=== PATIENT | female | born 1960 | race Asian ===

== ENCOUNTER 2016-04-12 11:45 | Observation (INO) | payer MEDICAID, OTHER ==
[2016-04-12] VITALS (8 sets, daily range): BP systolic 94–108; BP diastolic 56–75; PULSE 87–105; RESP 16–20; O2SAT 92–100
[~2016-04-12] VITALS: Ht 162.6 cm; Wt 65.3 kg
[~2016-04-12 11:45] MED LIST: ADV100INH IH; ALPH200T PO; ANAS1TAB7 PO; ASPI-653 PO; CALC600T12 PO; FLE10 PO; FLUD0.1T PO; FLUT9.9S NS; GABA300C PO; GABA600T PO; HYDR2TAB28 PO; INSU100V5 SQ; INSU100V6 SQ; INSU100V7 SUBQ; LANS30CA8 PO; LOM PO; MIRT15TA6 PO; MONT10TA23 PO; OMEP40CA36 PO; ONDA8TAB7 PO; PRAM0.122 PO; PREG50CA PO; PROC-4 PO; PROZ20 PO; SENN25TA8 PO; SIMV10TA4 PO; TIOT18CA3 IH; TOPI-31 PO; TOPI-59 PO
--- NOTE | 2016-04-12 11:48 | ED.REPORT ---
HPI-Stroke / CVA Apr 12, 2016 ED Provider: Kassy Ruiz MD 56 year old female with a history of diabetes, depression, current smoker and a history of drug use (cocaine) who presents to the ED due to a sudden onset of R sided arm and leg weakness and numbness at 11:25 today. Pt reports a history of similar symptoms (R sided weakness) Mar 2011. Prior to 11:25 the patient was at baseline with very mild R sided weakness and numbness. This is now severe per patient. At onset the patient was cooking and suddenly fell due to the weakness. Her son witnessed the fall. Pt reports a slight headache and states that she hit her head during the fall. She also reports seconds of "going black " after the fall. Associated symptoms include slurred speech and blurred vision. Home BGL was "high". Note from Mar 2011 states "Patient admits to re-starting cocaine... Her brain MRI, angiogram, and neck MRI angiogram showed no evidence of significant vascular disease. I think her neuro deficit is probably more related to her substance abuse." Nursing Notes Stated Complaint: FACIAL DROOPING Chief Complaint: Neuro Symptoms/ Deficits Nursing Notes Reviewed: Yes Allergies: Coded Allergies: tetracycline (Verified Allergy, Severe, Altered LOC, 07/03/15) risperidone (Verified Allergy, Unknown, 07/03/15) trazodone (Verified Allergy, Unknown, 07/03/15) Scheduled Alpha Lipoic Acid (Alpha Lipoic Acid) 200 Mg Tablet 200 MG PO BID (Reported) Anastrozole (Anastrozole) 1 Mg Tablet 1 MG PO DAILY (Reported) Aspirin (Aspirin) 81 Mg Tablet 81 MG PO DAILY (Reported) Calcium Carbonate (Calcium) 600 Mg Tablet 600 MG PO DAILY (Reported) Diphenoxylate/Atropine (Diphenoxylate-Atrop 2.5-0.025) 2.5 Mg Tablet 2.5 MG PO Q6HRS PRN (Reported) Fludrocortisone Acetate (Fludrocortisone Acetate) 0.1 Mg Tablet 0.1 MG PO DAILY (Reported) Fluoxetine (Fluoxetine) 20 Mg Tablet 20 MG PO DAILY (Reported) Fluticasone/Salmeterol (Advair 100-50 Diskus) 60 Puffs/Inh Disk 1 PUFFS IH BID ( Reported) Gabapentin (Gabapentin) 300 Mg Capsule 900 MG PO BID (Reported) Gabapentin (Gabapentin) 600 Mg Tablet 600 MG PO DAILY (Reported) Insulin Glargine (Lantus U100 Insulin Vial) 100 Unit/Ml Vial 25 UNIT SUBQ AM ( Reported) Insulin Glargine (Lantus U100 Insulin Vial) 100 Unit/Ml Vial 50 UNIT SUBQ HS ( Reported) Insulin Human Lispro (HumaLOG U100 Insulin Vial) 100 Unit/Ml Unit 1 UNIT SUBQ ACHS (Reported) Check blood sugars before meals and at bedtime. Use correction factor only before meals. Blood Sugar Lispro Correction: <151, 0 units; 151-175, 1 unit; 176-200, 2 units; 201-225, 3 units; 226-250, 4 units; 251-275, 5 units; 276-300 , 6 units; 301-325, 7 units; 326-350, 8 units; 351-375, 9 units; 376-400, 10 units; >400, 12 units. Mirtazapine (Mirtazapine) 15 Mg Tablet 15 MG PO HS (Reported) Montelukast (Montelukast) 10 Mg Tablet 10 MG PO HS (Reported) Omeprazole (Omeprazole) 40 Mg Capsule.dr 40 MG PO HS (Reported) Pramipexole Dihydrochloride (Mirapex) 0.125 Mg Tablet 0.125 MG PO TID (Reported ) Prochlorperazine Maleate (Compazine) 10 Mg Tablet 10 MG PO PRN (Reported) Simvastatin (Simvastatin) 10 Mg Tablet 10 MG PO HS (Reported) Topiramate (Topiramate) 100 Mg Tablet 100 MG PO DAILY (Reported) Topiramate (Topiramate) 25 Mg Tablet 50 MG PO DAILY (Reported) Scheduled PRN Cyclobenzaprine (Cyclobenzaprine) 5 Mg Tablet 5 MG PO TID PRN PRN Spasm ( Reported) Hydromorphone (Hydromorphone) 2 Mg Tablet 2 MG PO Q4H PRN PRN Pain (Reported) Ondansetron ODT (Zofran ODT) 8 Mg Tablet 8 MG PO Q4H PRN PRN For Nausea ( Reported) Miscellaneous Medications Fluticasone Propionate (Flonase Allergy Relief) 50 Mcg/Actuation [place].susp 9.9 ML NS (Reported) Sennosides (Senna Laxative) 25 Mg Tablet 25 MG PO (Reported) Umeclidinium [place] (Incruse Ellipta) 62.5 Mcg/Actuation Blst.w.dev (Reported) General Time Seen by Provider: 11:43 Chief Complaint Weakness, Numbness, Slurred speech Right-sided Hx Obtained From: Patient Arrived By: Wheelchair Time last known well 1125 04/12/16 Sudden in Onset?: Yes Context of Onset: Other (At home) Symptom Duration: Since onset Progression Since Onset: Constant Severity: Current: No pain currently Pertinent Negative: Relieved by nothing Similar Sx Previous: Yes Risk Factors )( TPA Administration/Criteria Stroke Thrombolytic Therapy : TPA Considered: Yes TPA Administered Intravenously: No, exclusion criteria (Symptoms improving) NIH Stroke Scale Level of Consciousness: Alert and responsive (0) Ask Month & Age: Both questions right (0) Open/Close Eyes/Hand Hide Paster: Performs both tasks (0) Horizontal EO Movements: None (0) Visual [place]: No visual loss (0) Facial Palsy: Minor paralysis (1) (L side) Right Arm Motor Drift (10s): Drift, not touch bed (1) Left Arm Motor Drift (10s): No drift 10 sec (0) Right Leg Motor Drift (5s): Drift, not touch bed (1) Left Leg Motor Drift (5s): No drift 5 sec (0) Limb Ataxia FNF/Heel-Goodson: Ataxia in 1 limb (1) (RLE) Sensation (Arms/Legs/Face): Pinprick less sharp (1) (R side) Language Aphasia: Loss fluency ID matls (1) Dysarthria: Slurring intelligible (1) Extinction/Inattention: No exctinct/inattent (0) NIHSS Score: 7 Time NIHSS Performed: 11:44 Date NIHSS Performed: Apr 12, 2016 )( CVA Risk Stratification Risk factors reviewed Past Medical History Past Medical History 1. Depression, anxiety. 2. PTSD. 3. Substance abuse (cocaine). 4. History of peptic ulcer disease. 5. Suicide attempt by overdose 6. Type 2 diabetes 7. Becker's disease 8. Treated TIc N1 estrogen receptor positive, HER2 negative, well differentiated infiltrating ductal carcinoma of the right breast. Past Surgical History 1. Carpal tunnel syndrome. 2. Bilat rotator cuff. 3. . 4. Ovarian cystectomy 5. Appendectomy 6. Neck laminectomy 7. R lumpectomy Smoking History Current Every Day Smoker Social History Alcohol Use: Denies alcohol use Drug Use: Cocaine Ambulatory Status Independent Review of Systems Constitutional: Denies: Fever Respiratory: Denies: Non-productive cough, Shortness of breath Cardiovascular: Denies: Chest pain GI: Denies: Abdominal pain, Diarrhea, Vomiting Neurologic: Reports: Change LOC, Focal weakness, Headache, Numbness, Problem walking, Slurred speech, Vision change Complete sys rev & neg: except as marked. Physical Exam Initial Vital Signs Vital Signs (First) Date Time Temp Pulse Resp B/P Pulse Ox O2 Delivery O2 Flow Rate FiO2 04/12/16 11:46 37.2 105 18 103/62 100 Room Air Initial VS: Reviewed ENT: Conjunctiva normal, No scleral icterus Abdomen / GI: Soft, Non-tender Skin: Warm, Dry, No cyanosis General/Constitutional: Awake, Alert, Cooperative Head / Eyes: Atraumatic, Normocephalic, PERRL Neck: Atraumatic, Full range of motion Respiratory / Chest: Breath sounds NL, Breath sounds = bilat, No respiratory distress, No rales, No rhonchi, No wheezing Cardiovascular: Regular rhythm, Heart sounds NL, No murmurs, Peripheral circulation NL (Well perfused) Heart Rate / Rhythm: Positive: Tachycardia Neurologic: Oriented X3 Speech: Positive: Slurred (slightly) Sensory Deficit: Positive: Lower extremity R, Upper extremity R Cerebellar Dysfunction: Positive: Heel-goodson abnl (bilat) Mild L sided facial droop Interpretation & Diagnostics Lab Results Interpretation Result Diagram: 04/12/16 1225 04/12/16 1225 Test 04/12/16 12:25 White Blood Count 8.5th/mm3 (3.8-10.1) Red Blood Count 4.49mil/mm3 (3.90-5.20) Hemoglobin 13.8g/dL (12.0-15.6) Hematocrit 41.3% (35.0-46.0) Mean Corpuscular Volume 92.0fL (81-100) Mean Corpuscular Hemoglobin 30.7pg (27.0-35.0) Mean Corpuscular Hemoglobin Concent 33.4% (32.0-37.0) Red Cell Distribution Width 13.3% (12.3-15.4) Platelet Count 345bil/L (150-400) Neutrophils (%) (Auto) 73.4% (40-74) Lymphocytes (%) (Auto) 18.7% (14-46) Monocytes (%) (Auto) 6.1% (4-12) Eosinophils (%) (Auto) 1.1% (0-5) Basophils (%) (Auto) 0.5% (0-3) Prothrombin Time 10.4sec (8.1-12.5) Prothromb Time International Ratio 0.97ratio Activated Partial Thromboplast Time 19.8sec (22.8-33.0) Sodium Level 141mEq/L (134-144) Potassium Level 3.8mEq/L (3.5-5.2) Chloride Level 100mEq/L (97-108) Carbon Dioxide Level 25mmol/L (18-29) Blood Urea Nitrogen 8mg/dL (6-24) Creatinine 0.87mg/dL (0.57-1.00) Estimat Glomerular Filtration Rate 96mL/min (>59) Glucose Level 157mg/dL (60-99) Calcium Level 9.9mg/dL (8.5-10.1) Total Bilirubin 0.3mg/dL (0.0-1.2) Aspartate Amino Transf (AST/SGOT) 60U/L (0-50) Alanine Aminotransferase (ALT/SGPT) 43U/L (0-32) Alkaline Phosphatase 161U/L (25-150) Troponin T 0.010ug/L (0.0-0.011) Total Protein 8.5g/dL (6.4-8.4) Albumin 4.2g/dL (3.4-5.0) Hold [place] Top Tube Received (Received) General Lab Results Interp 1: Labs reviewed ECG Interpretation ECG Interpretation: NSR with rate 95. No chest pain. Pt with R sided weakness/numbness. Similar ST changes to 11/2011. Time: 12:11 Interpreted by: ED physician CT Head Interpretation IMPRESSION: No acute intracranial findings. These findings were discussed with Dr. Ruiz at 12:01 PM on 04/12/16. This study fulfills neurological imaging criteria for inclusion or exclusion of acute stroke therapies based on available published neurological imaging guidelines. Dictated by: Fartun Marin M.D. on 04/12/2016 at 12:00 Study: Head CT no contrast Interpretation / Wet Read by: Interpret - Radiologist, Discussed w radiologist (No bleed 12:02) Re-Eval/Medical Decision Re-Evaluation/Progress : Time of Eval: 12:41 Re-Evaluation/Progress Note: Pt resting comfortably in bed. Slightly hypertensive and tacycardic. Updated pt of labs, ECG and imaging results. Pt's son is now in the room. He states she was having difficulty with speech, but that this is much better now. Her other symptoms are also improving. Recommended admission. Pt understands and agrees with plan. All questions addressed. Consultation : Referral / Consult Name: Ha Garcia DO Consulted With: Hospitalist Call Returned at: 15:02 Information Systems Audit Manager: Will see patient, Agrees with eval, Agrees with plan, Accepts admit Counseled Regarding: Diagnosis, Lab results, Need for admission Patient Discharge & Departure Impression: Primary Impression: TIA (transient ischemic attack) Transient cerebral ischemia type: unspecified Qualified Code: G45.9 - Transient cerebral ischemic attack, unspecified Additional Impression: Numbness on right side Disposition: ADMITTED TO HOSPITAL Discharge Condition All VS Reviewed: Yes Condition: Improved Referrals: NOPCP (PCP) Scribe Attestation Portions of this note were transcribed by Marian Burgess. I, (Dr. Ruiz) personally performed the history, physical exam and medical decision-making; I reviewed and confirmed the accuracy of the information in the transcribed note. Signed by: Marian Burgess. [place], 04/12/2016, 1209 Kassy Ruiz MD Apr 12, 2016 11:48 Marian Burgess Apr 12, 2016 12:10
--- NOTE | 2016-04-12 12:05 | DRSVH ---
PROCEDURE: CT BRAIN (TPA) ([id number]) INDICATIONS: Stroke TECHNIQUE: Noncontrast 4.5 mm thick angled axial sections acquired from the foramen magnum to the vertex, with c oronal reformats. COMPARISON: None. FINDINGS: Image quality: Excellent. CSF spaces: Basal cisterns are patent. No extra-axial fluid collections. Ventricles are normal in size and shape. Brain: No midline shift. No intracranial masses or hemorrhage. Choudhary-white matter interface is norm al. Skull and face: Calvarium and visualized facial bones are intact, without suspicious lesions. Sinuses: Visualized sinuses and mastoids are clear. IMPRESSION: No acute intracranial findings. These findings were discussed with Dr. Ruiz at 12:01 PM on 04/12/16. This study fulfills neurological imaging criteria for inclusion or exclusion of acute stroke therapie s based on available published neurological imaging guidelines. Dictated by: Fartun Marin M.D. on 04/12/2016 at 12:00 Approved by: Fartun Marin M.D. on 04/12/2016 at 12:03
[2016-04-12 12:36] LABS: BASOPHILS % (AUTO) 0.5 % (0-3); EOSINOPHILS % (AUTO) 1.1 % (0-5); MONOCYTES % (AUTO) 6.1 % (4-12); Mean Corpuscular Hemoglobin 30.7 pg (27.0-35.0); NEUTROPHILS % (AUTO) 73.4 % (40-74); Platelet Count 345 bil/L (150-400)
[2016-04-12 12:45] LABS: INR 0.97 ratio
[2016-04-12 12:50] LABS: TROPONIN T 0.01 ug/L (0.0-0.011)
[2016-04-12] MEDS ORDERED: UMEC62.5 (12:59)
[2016-04-12] MEDS ORDERED: GABA600T2 PO (13:05)
[2016-04-12] MEDS ORDERED: CYCL5TAB PO (13:05)
[2016-04-12] MEDS ORDERED: INSU100V7 SUBQ (13:05)
[2016-04-12] MEDS ORDERED: FLUO20TA28 PO (13:05)
[2016-04-12] MEDS ORDERED: GABA-502 PO (13:05)
[2016-04-12] MEDS ORDERED: ASPI-973 PO (13:05)
[2016-04-12] MEDS ORDERED: INSLIS SUBQ (13:08)
[2016-04-12] MEDS ORDERED: Alum-Mag Hydrox-Simeth 30 mL Suspension PO PRN (15:40)
[2016-04-12] MEDS ORDERED: Ondansetron 2 mg/mL 2 mL Inj IVPUSH PRN (15:40)
[2016-04-12] MEDS ORDERED: Polyethylene Glycol (PEG) 17 Gm Powder PO PRN (15:40)
--- NOTE | 2016-04-12 16:00 | NUR ---
Admission Patient arrived on unit via gurney accompanied by son. Patient alert and oriented x3. Patient displayed unsteady gait with 1 person assist to stand/pivot to sit on bed. Patient reporting she was cooking and had a sudden onset of Rt sided weakness and fell to the floor. Followed by blurred vision, facial droop and slurred speech. Patient reporting a continuous "migraine" for the last several days. Patient reports she used cocaine 2 days ago, is a current every day smoker and a diabetic. Son manages her medications and helps her with her care. Patient reporting she still has some slurred speech (which is difficult to assess as she has no teeth) patient also reporting that her speech has improved greatly and her blurred vision is nearly resolved. Patient has no tongue deviation or facial droop. Swallow screen preformed per speech therapy. MRI/CT complete. Addendum: 04/12/16 at 1922 by LOUIS BURNS RN Patient does not have an Advance Directive.
--- NOTE | 2016-04-12 16:23 | PCM.HPMED ---
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 Per patient, last memory was of cooking lunch around 11oclock this AM. Then, blacked out, woke up on the ground. Her son witness the event, said she woke up in seconds. States of palpitation with associated lightheaded, dizziness moments before the fall. She reports Right sided weakness and ataxia after the fall. Denies any bowel/bladder incontinence. No nausea, vomiting. They arrived at ED 11:44 am with NIHSS 7. Prior to syncope, she reports morning BG >350. She gave herself 36u short acting insulin. She normally takes 34u in the AM. Blood sugar consistently in the 300's, admits to poorly managing Lantus. She has increasing stressors. She has been using cocaine, last use 3 days ago. She denies any heart history. Per patient, cardiac stress testing unremarkable 2yrs ago. Review of Systems: A comprehensive review of systems was conducted with the patient and found to be negative except as above in the History of Present Illness. Allergies Coded Allergies: tetracycline (Verified Allergy, Severe, Altered LOC, 07/03/15) risperidone (Verified Allergy, Unknown, 07/03/15) trazodone (Verified Allergy, Unknown, 07/03/15) Home Medications Medication list verified by Linda Garcia RN Alpha lipoic acid 200 mg by mouth twice a day Anastrozole 1 mg by mouth daily aspirin 81 mg daily Calcium carbonate 600 mg daily Cyclobenzaprine 5 mg 3 times a day when necessary Diphenoxylate/atropine 2.5 mg tablet every 6 hours when necessary Fludrocortisone acetate 0.1 mg daily Fluoxetine 20 mg daily Fluticasone appropriately. 50 MCG when necessary Advair 100-50 discussed one puff twice a day Gabapentin 100 mg twice a day Gabapentin 600 mg daily Hydromorphone 2 mg every 4 hours when necessary Lantus 25 mg every morning and 50 mg daily at bedtime Lispro per sliding scale There are PACs 0.125 mg by mouth 3 times a day Conversely, milligram by mouth when necessary Senokot 25 mg by mouth daily As needed Simvastatin 10 mg by mouth at bedtime Topiramate 100 mg by mouth daily Umeclidiunium 62.5 MCG daily PMH Depression/anxiety PTSD. Substance abuse (cocaine). History of peptic ulcer disease. Suicide attempt by overdose Type 2 diabetes Garland's disease Differentiated Ductal carcinoma of Right breast Surgical History Cervical spinal fusion x2 2001 and 2011 Rotator cuff repair Appendectomy right breast lumpectomy Family History Mother - blood clot disorder Social History Occupation: high lift driver, currently [employer] Hx Alcohol Use: No Hx Substance Use: Yes (cocaine, used yesterday for first time in 7 years) Hx Tobacco Use: Yes (1/2 ppd) Smoking Status: Current Every Day Smoker Living Arrangement: with Family Exam Vital Signs Vital Sign - Last Date Time Temp Pulse Resp B/P Pulse Ox O2 Delivery O2 Flow Rate FiO2 04/12/16 15:03 37.2 93 19 94/59 92 Room Air Exam Gen: Lying comfortably at 30degree head tilt HEENT: PERRLA, Anicteric sclerae, moist conjunctivae, and no lid lag. Neck: supple, no JVD Cardio: Regular rate and rhythm with no murmurs, rubs, or gallops appreciated Pulm: b/l air sound, no crackles, wheezes, or rhonchi. Normal respiratory effort with no use of accessory muscles. Abd: positive bowel tone. Soft, nontender, nondistended. Extremities: No clubbing, cyanosis, edema, or lymphadenopathy appreciated. Skin: Normal temperature, turgor, and texture; no rash, ulcers, or subcutaneous nodules appreciated. Neuro: Cranial nerves grossly intact. moving equally on all four limbs, + Romberg test. Negative [id number] Psyc: Normal mood and affect. 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 Syncope, present on admission, ongoing -- Possible orthostatic hypotension due to Garland's disease, vasovagal, or even hypoglycemia. Though BG 157 in ED. -- Patient non-compliance with medications. -- Echocardiogram and orthostatic in the AM -- Telemetry on TIA, present on admission, active -- NIH score 7, CT-head unremarkable -- High stroke risk DM II, chronic smoker, recent cocaine use, positive Romberg test -- Past hx of TIA/stroke 4 yrs ago, possible recrudescence 2nd to hypoperfusion , Concerns for new embolic stroke -- MRI-stroke protocol, echocardiogram, and lipid profile ordered -- cont home Aspirin 81mg daily and atorvastatin -- PT/swallowing eval pending Diabetes Type II, insulin using, present on admission, ongoing -- with peripheral neuropathy -- noncompliance to insulin use -- A1C pending -- Lantus 25mg BID, Insulin per sliding scale -- Gabapentin for neuropathy -- Diabetes education. Low/no carb diet. Garland's disease -- Cont home Fludrocortisone Polydrug abuse, present on admission, active -- cocaine and marihuana -- Social work referral. Asthma, present on admission, ongoing -- She actively smokes -- cont Advair -- Duoneb as needed Tobacco use disorder -- Discuss risk/benefits of smoking secession -- Provide education to stop Anxiety/Depression -- Restart pramipexole and fluoxetine Depression/anxiety/PTSD -- Mirapex and fluoxetine -- Psychiatrist Dr. 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 Seizure disorder- Topiramate Chronic pain - hydrocodone DVT prophylaxis: Lovenox subQ Antipyretic: Acetaminophen PRN Antinausea: Ondansetron PRN Bowel regiment PRN Patient is admitted under observation status with expected length of stay LESS than 2 midnights due to severity of presenting symptoms, risk of adverse event, and complexity of treatment plan. Time spent 50 minutes Attending Statement I have seen and evaluated patient at bedside in addition to directly supervised care provided by resident physician. I agree with above documentation. Riaz Enrique DO Apr 12, 2016 15:48 Ha Garcia DO Apr 13, 2016 08:23
[2016-04-12] MEDS ORDERED: Insulin GLARgine 100 Unit/mL Syringe SUBQ SCH ×3 (16:35→21:00)
[2016-04-12] MEDS ORDERED: Glucose 40% Oral Gel 15 Gm Tube PO PRN (16:35)
[2016-04-12] MEDS: 0.9% Sodium Chloride 1,000 ML IV SCH (16:37)
[2016-04-12] MEDS: Insulin LISPRO 300 Unit/3 mL Inj SUBQ SCH ×2 (17:49→21:32)
[2016-04-12] MEDS ORDERED: Albuterol-Ipratropium 3 mL Inhalation Solution NEB PRN (18:20)
--- NOTE | 2016-04-12 19:14 | DRSVH ---
PROCEDURE: MRI STROKE PROTOCOL ([id number]) Pre- and post-contrast brain MRI, non-contrast brain MR angiogram, pre- and postcontrast neck MR katiana ogram INDICATIONS: Right side weakness,TIA TECHNIQUE: Brain: Noncontrast axial T1 spin echo, axial T2 fast spin echo, sagittal and axial FLAIR, coronal T2 fast spin echo, axial gradient echo, axial diffusion and ADC through the brain. After the administr ation of contrast, axial 3D VIBE of the cranial vasculature and brain. Brain MRA: Non-contrast 3-D time of flight MR angiogram, with multiple otsgpqf-wgvijzjom-dldaqtmnkw (MIP) reformats performed. Neck MRA: Axial and sagittal TruFISP through the neck. Coronal dynamic MR angiogram during administ ration of contrast in the arterial and venous phases, with 3-dimenstional jiymsrj-bmoohhdhb-fdiaascgc n (MIP) reformats constructed from subtraction images. COMPARISON: [facility], MR, STROKE PROTOCOL ([facility]), 04/02/2011, 8:00. FINDINGS: Image quality: Excellent. BRAIN: CSF spaces: Ventricles are normal in size and shape. Basal cisterns are patent. No extra-axial flu id collections. Brain: No intracranial bleeds or mass effects. Choudhary-white matter interface is normal. Diffusion we ighted images show no acute ischemic insults. There are a few indeterminate foci of T2/FLAIR hyperin tensity, unchanged, most likely secondary to chronic small vessel ischemia. Brainstem appears normal. Normal intravascular flow voids are present. No abnormal intracranial enhancement. Skull and face: Calvarial marrow signal is normal. Orbits appear normal. Sinuses: Sinuses and mastoids are clear. BRAIN MR ANGIOGRAM: Anterior circulation: Intracranial internal carotid arteries are normal in size and enhancement. Th e flow within the paired anterior cerebral arteries is normal and symmetric. The flow within the mid dle cerebral arteries is normal and symmetric. The anterior communicating artery is seen. No stenos es, occlusions, or aneurysms. Posterior circulation: The visualized portions of the vertebral arteries demonstrate normal caliber, and join to form a normal appearing basilar artery. The flow within the posterior cerebral arteries is normal and symmetric. No stenoses, occlusions, or aneurysms. NECK MR ANGIOGRAM: Carotids: There is a common trunk for the left common carotid artery and innominate artery. The alfred gins of the common carotid arteries appear patent. The calibers and courses of both common carotid a rteries are normal. The bifurcation regions appear normal bilaterally. The internal carotid arterie s demonstrate normal course and caliber. Posterior circulation: The origins of the vertebral arteries appear patent. More superior portions of both vertebral arteries demonstrate normal course and caliber, and join to form a normal appearing basilar artery. Miscellaneous: Subclavian arteries appear patent. Pre-contrast images through the neck show no soft tissue abnormalities. IMPRESSION: BRAIN MRI: No acute intracranial abnormalities. BRAIN MR ANGIOGRAM: Normal brain angiogram. NECK MR ANGIOGRAM: Normal neck angiogram compared The estimate of stenosis included in the report of the imaging study was calculated using the NASCET method Dictated by: Chiara Love M.D. on 04/12/2016 at 19:07 Approved by: Chiara Love M.D. on 04/12/2016 at 19:13
[2016-04-12] MEDS ORDERED: Pantoprazole 40 mg ER24 Tablet PO SCH (21:00)
[2016-04-12] MEDS: Fluticasone-Salmeterol 100-50 Inhaler INHALATION SCH (21:26)
[2016-04-12 23:44] LABS: APPEARANCE,URINE CLOUDY (CLEAR,HAZY); COLOR,URINE YELLOW (YELLOW); OCCULT BLOOD,URINE SMALL (NEGATIVE); PH,URINE 5.5 (5.0-8.0); UROBILINOGEN,URINE NORMAL (NORMAL)
[2016-04-13 01:59] VITALS: BP 118/71; PULSE 78; RESP 20; O2SAT 95
[2016-04-13] MEDS: 0.9% Sodium Chloride 1,000 ML IV SCH (03:12)
--- NOTE | 2016-04-13 04:53 | NUR ---
sats/neuro/pain Placed on continuous pulse oximetry while asleep due to history of sleep apnea, and room air sats have remained in mid-90's throughout the night. Pt has been alert and oriented. Up to bathroom with standby assist. Noted some weakness when up, and bed alarm is on for safety, although she has been using the call light appropriately to request assistance. Continues with some numbness to right leg and arm, which she states is new this hospitalization, but improving. C/o chronic back pain and given home dose of PO Dilaudid. States this was effective and has slept much of the night.
[2016-04-13 05:58] VITALS: BP 143/73; PULSE 71; RESP 18; O2SAT 95
--- NOTE | 2016-04-13 06:49 | NUR ---
Lab Labs note yet drawn this AM. Contacted lab to come and draw.
[2016-04-13] MEDS: Fluticasone-Salmeterol 100-50 Inhaler INHALATION SCH (08:04)
[2016-04-13] MEDS: Insulin LISPRO 300 Unit/3 mL Inj SUBQ SCH ×2 (08:04→12:05)
[2016-04-13] MEDS ORDERED: Insulin GLARgine 100 Unit/mL Syringe SUBQ SCH (08:30)
[2016-04-13 09:00] VITALS: PULSE 82; RESP 18; O2SAT 97
[2016-04-13 10:49] VITALS: BP 127/77; PULSE 79; RESP 18; O2SAT 93
[2016-04-13 10:50] VITALS: BP_SYST 132; BP_SYST 138; BP_DIAS 48; BP_DIAS 76
--- NOTE | 2016-04-13 11:35 | DRSVH ---
[facility] [address] [place] [address] Echocardiogram Report Name: REHANA MCNEIL FStudy Date: 04/13/2016 Height: 64 in Hospital Exam Location: [facility] Weight: 144 lb Gender: Female BSA: 1.7 m2 : 1960 Age: 56 yrs BP: 143/73 mmHg Reason For Study: TIA, STROKE History: CVA,CANCER Ordering Physician: HOSPITALIST [facility] Performed By: Ni Rojas Referring Physician: DR. BRENDA MARTÍNEZ, [place] Interpretation Summary The left ventricle is normal in size, wall thickness, and systolic function without any focal wall motion abnormalities. The ejection fraction is estimated to be 60-65%. Injection of contrast documented no interatrial shunt. There is no significant valvular heart disease. Procedure: A two-dimensional transthoracic echocardiogram with color flow and Doppler was performed. The study quality was technically adequate. Comparison is made with the echocardiogram of 04-02-2011. A saline contrast injection was performed to assess for cardiac shunting. The injection was performed through an intravenous line in the left arm. The patient was in normal sinus rhythm during the exam. Left Ventricle: The left ventricle is normal in size, wall thickness, and systolic function without any focal wall motion abnormalities. The ejection fraction is estimated to be 60-65%. Spectral Doppler of the mitral valve shows a normal E/A wave ratio. Right Ventricle: The right ventricle is normal in size and function. A moderator band is seen in the right ventricle. Atria: Both atria are normal in size. There is no Doppler evidence for an atrial septal defect. Injection of contrast documented no interatrial shunt. Mitral Valve: The mitral valve leaflets appear normal. There is no evidence of stenosis, fluttering, or prolapse. There is trace mitral regurgitation. Aortic Valve: The aortic valve is trileaflet. The aortic valve opens well. No aortic regurgitation is present. Tricuspid Valve: The tricuspid valve leaflets are thin and pliable. There is a trace or physiologic amount of tricuspid regurgitation. Pulmonary artery pressures cannot be estimated because of the lack of a measurable TR jet velocity. Pulmonic Valve: The pulmonic valve is normal in structure and function. There is no pulmonic valvular regurgitation. Great Vessels: The aortic root is normal size. The dimensions of the ascending aorta are normal. The pulmonary artery is normal size. The IVC is dilated (diameter is greater than 2.1 cm) and it collapses less than 50% with a sniff. This suggests a high right atrial pressure of 15 mm Hg. Pericardium/ Pleura There is no pericardial effusion. There is no pleural effusion. MMode/2D Measurements & Calculations LVIDd: 3.9 cm LA dimension: 4.1 cm RA long axis LVOT diam: 2.1 cm LVIDs: 2.6 cm AoV Opening FS: 33.4 % LA A2 area: 16.5 cm RA area EPSS: 0.20 cm LA A4 area: 22.5 cm Ao root diam IVSd: 1.1 cm LA length (vol) : 16.4 cm LVPWd: 1.1 cm RA vol asc Aorta Diam LA vol: 58.6 ml : 47.3 ml LA vol index RA Ao Arch Diam (Prox : 27.8 mm2 Trans): 3.1 cm IVC diam: 2.5 cm LV camara. diameter/BSA LV sys. diameter/BSA (cm/m^2): 2.3 (cm/m^2): 1.5 Doppler Measurements & Calculations Ao V2 max MV E max rangel MV E/A: 1.1 PA V2 max : 156.2 cm/sec : 104.3 cm/sec Med Peak E' Rangel : 88.4 cm/sec Ao max P.8 mmHg MV A max rangel PA mean PG Ao mean P.7 mmHg : 95.8 cm/sec E/E' med: 13.5 LVOT Max Rangel MV P1/2t: 63.7 msec Lat Peak E' Rangel PA Accel Time : 102.5 cm/sec : 0.11 sec E/E' lat: 9.7 LORENE(I,D): 2.4 cm E/e' average sev ratio: 0.70 Pulm A Revs Dur MV A dur : 0.13 sec MV P1/2t max rangel Ao V2 mean LV V1 max PG PA V2 mean : 104.3 cm/sec : 70.0 cm/sec Ao V2 VTI: 32.4 cm LV V1 VTI MVA(P1/2t): 3.5 cm2 : 22.8 cm LORENE(V,D): 2.2 cm2 LORENE indexed to BSA Pulm A Revs Dur - MV A (cm^2/m^2): 1.4 Dur: -0.02 msec Electronically signed by: Nii Hodges on Reading Physician:04/13/2016 11:34 AM
[2016-04-13 13:33] VITALS: BP 134/73; PULSE 87; RESP 19; O2SAT 95
--- NOTE | 2016-04-13 14:20 | PCM.DIMED ---
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 We found no evidence of a stroke in you. Nor did we find any evidence for the transient ischemic attack based on MRI, echocardiogram, and heart monitoring. Likely, you did not take your medication, especially your fludrocortisone. This caused hypotension and was the reason for the "fainting" You will also need to control your blood sugar. Please take your lantus at the prescribed amount. Lantus 25mg in the morning Lantus 50mg at night Short acting insulin. Limit your carbohydrates. Follow-up Provider: OTHER,PHYSICIAN Follow-up with PCP in: 1 week (CAMILA Syed ) Ha Garcia DO 04/13/16 1453: Discharge Instructions Attending's Statement Read and agree Riaz Enrique DO Apr 13, 2016 14:20 Ha Garcia DO Apr 13, 2016 14:53
--- NOTE | 2016-04-13 15:35 | NUR ---
DISCHARGE Patient discharged at 1530, off floor in wheelchair accompanied by HOUSE PRINCIPAL. Vitals stable, denies pain and in no apparent distress. IV discontinued intact, all belongings returned. All instructions for diet, activity, medications and follow-up discussed with patient who reports understanding.
--- NOTE | 2016-04-13 16:18 | NUR ---
Social Work-initial assessment/ discharge: Data:EMR reviewed. Pt is a 56 y/o female who was admitted on 04/12/16 for TIA per H&P. Pt is medically stable for discharge. Pt resides at home with her son where she remains independent with ADLS. Pt does not use any DME does not drive. Pt has no HH or SNF history. PT has cleared pt for home no needs. SW discussed pt's cocaine use. Pt states she just relapsed and has been clean for 12 years. Pt is not interested in discussing further and is not interested in resources. Pt's son to provide transport home today. No discharge needs identified. All updated and agreeable to plan. Assessment:Pt who is independent at baseline. Plan:Pt to discharge home today via POV. No discharge needs identified. All updated and agreeable to plan. GILLIAN Hanna
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
[2016-04-14 06:11] LABS: Hepatitis A Antibody IgM Negative (Negative); Hepatitis B Core Antibody IgM Negative (Negative)
== END 2016-04-13 15:34 | disposition home or self-care (01) ==
LOC: SED 11:45 → MPC 14:49
PROVIDERS: ADMIT Internal Medicine; ATTEND Family Medicine
DX: G45.9 Transient cerebral ischemic attack, unspecified (principal); R55 Syncope and collapse; E11.65 Type 2 diabetes mellitus with hyperglycemia; E11.42 Type 2 diabetes mellitus with diabetic polyneuropathy; E27.1 Primary adrenocortical insufficiency; R29.707 NIHSS score 7; R20.0 Anesthesia of skin; F14.10 Cocaine abuse, uncomplicated; F12.10 Cannabis abuse, uncomplicated; J45.909 Unspecified asthma, uncomplicated; F32.9 Major depressive disorder, single episode, unspecified; F41.9 Anxiety disorder, unspecified; F43.10 Post-traumatic stress disorder, unspecified; F17.210 Nicotine dependence, cigarettes, uncomplicated; Z79.82 Long term (current) use of aspirin; Z79.4 Long term (current) use of insulin; Z85.3 Personal history of malignant neoplasm of breast; Z91.14 Patient's other noncompliance with medication regimen
CPT/HCPCS: 36415; 70450; 70549; 70553; 80053; 80061; 81000; 82948; 83036; 84484; 85025; 85610; 85730; 86705; 86709; 87077; 87086; 87088; 87186; 87340; 87341; 92610; 93005; 94799; 97161; 99285; A9585; C8929; G0378; G0433; G0472; G0480; G8978; G8979; G8980; J1650; J1815; J7030; S0170